=== PATIENT | male | born 1985 | race Caucasian/White ===

== ENCOUNTER 2020-07-07 16:15 | Emergency (ER) | payer MEDICAID, OTHER ==
[~2020-07-07] VITALS: Ht 180.3 cm; Wt 97.5 kg
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
[2020-07-07] MEDS ORDERED: ACETAMINOPHEN ES 500 MG TABLET ONE (16:43)
[2020-07-07] MEDS: ACETAMINOPHEN 325 MG TABLET PO ONE (16:47)
[2020-07-07 17:51] VITALS: BP 120/68
--- NOTE | 2020-07-07 17:51 | NUR ---
Patient discharged in stable condition. Written and verbal after care instructions given. Patient verbalizes understanding of instruction. Declined resources, given dinner tray.
== END 2020-07-07 17:53 | disposition home or self-care (01) ==
LOC: ER 17:24
DX: S09.8XXA Other specified injuries of head, initial encounter (principal); M54.6 Pain in thoracic spine; R07.89 Other chest pain; R51 Headache; F15.10 Other stimulant abuse, uncomplicated; Z59.0 Homelessness; V19.88XA Pedal cyclist (driver) (passenger) injured in other specified transport accidents, initial encounter; Y93.89 Activity, other specified; Y92.89 Other specified places as the place of occurrence of the external cause; Y99.8 Other external cause status
CPT/HCPCS: 70450-TC; 71045-TC; 72074-TC

== ENCOUNTER 2021-12-01 02:20 | Emergency (ER) | payer MEDICAID, OTHER ==
[~2021-12-01] VITALS: Ht 180.3 cm; Wt 90.7 kg
[2021-12-01 02:23] VITALS: BP 134/77
--- NOTE | 2021-12-01 02:41 | NUR ---
Patient discharged to shelter in stable condition. Written and verbal after care instructions given. Patient verbalizes understanding of instruction.
== END 2021-12-01 02:54 ==
LOC: ER 02:20
DX: Z02.89 Encounter for other administrative examinations (principal); R07.89 Other chest pain; F15.10 Other stimulant abuse, uncomplicated; Z59.00 Homelessness unspecified